=== PATIENT | female | born 1955 | race African-American/Black ===

== ENCOUNTER 2017-09-03 17:21 | Emergency (ER) | payer OTHER ==
[~2017-09-03] VITALS: Ht 167.6 cm; Wt 73.0 kg
[~2017-09-03 17:21] MED LIST: GLUCTAB PO; LANTUS2P SC; LISI-363 PO; LOVA40TA PO; METO50TA PO; NOVOLOGP2 SQ; VENL75 PO
[2017-09-03 18:03] VITALS: BP 141/65; PULSE 77; RESP 17; TEMP 98.5; O2SAT 99
[2017-09-03 19:47] LABS: AUTOMATED NEUTROPHIL # 5.1 TH/MM3 (1.8-7.7); BASOPHIL % 0.4 % (0.0-2.0); EOSINOPHIL # 0.3 TH/MM3 (0-0.4); EOSINOPHIL % 3.7 % (0.0-4.0); HEMATOCRIT 34.2 % (35.0-46.0); HEMOGLOBIN 11.9 GM/DL (11.6-15.3); LYMPH % 26.8 % (9.0-44.0); LYMPHOCYTE # 2.2 TH/MM3 (1.0-4.8); MEAN CORPUSCULAR HEMOGLOBIN 31.3 PG (27.0-34.0); MEAN CORPUSCULAR HGB CONC 34.8 % (32.0-36.0); MEAN PLATELET VOLUME 8.5 FL (7.0-11.0); MONO % 7.2 % (0.0-8.0); MONOCYTE # 0.6 TH/MM3 (0-0.9); NEUT % 61.9 % (16.0-70.0); PLATELET COUNT 325 TH/MM3 (150-450); RED CELL DISTRIBUTION WIDTH 12.9 % (11.6-17.2); WHITE BLOOD COUNT 8.2 TH/MM3 (4.0-11.0)
[2017-09-03 20:12] LABS: BICARBONATE 26.5 MEQ/L (21.0-32.0); CALCIUM 9.2 MG/DL (8.5-10.1); CREATININE 1.2 MG/DL (0.50-1.00)
[2017-09-03 21:10] VITALS: BP 171/75; PULSE 78; RESP 16; O2SAT 99
[2017-09-03] MEDS ORDERED: METO50TA PO (21:20)
[2017-09-03] MEDS ORDERED: LOVA40TA PO (21:20)
[2017-09-03] MEDS ORDERED: LISI-515 PO (21:20)
[2017-09-03] MEDS ORDERED: INSU1INJ14 SQ (21:20)
[2017-09-03] MEDS ORDERED: VENL75TA PO (21:20)
[2017-09-03] MEDS ORDERED: NOVOLOGP2 SQ (21:20)
[2017-09-03] MEDS ORDERED: METF1000 PO (21:20)
[2017-09-03] MEDS ORDERED: HYDR25TA5 PO (21:41)
[2017-09-03 21:42] VITALS: BP 157/78; PULSE 70; RESP 18; O2SAT 98
[2017-09-03] MEDS ORDERED: FUROSEMIDE 20 MG TAB PO ONE (21:45)
--- NOTE | 2017-09-03 21:49 | PD ---
HPI Chief Complaint: Edema Time Seen by Provider: 21:12 Travel History International Travel<30 days: No Contact w/Intl Traveler<30days: No Traveled to known affect area: No History of Present Illness HPI Patient is a 61-year-old female coming in after having been put on hydrochlorothiazide 25 mg 2 weeks ago. Patient says it is not helping at all her legs are still edematous bilateral. She has been elevating her legs she has been trying to stretch them she has not had any increase in urination and she feels the hydrochlorothiazide pill is not helping her symptoms which are bilateral leg edema progressively getting worse she has aching pain in them that is localized to her ankles bilateral. She also noticed now an increase in the swelling all the way up to her knees bilateral. She saw Dr. White PCP in [place] 2 weeks ago for that initial dosing of the hydrochlorthiazide. Tonight she comes in because it is getting worse and she does not feel the pill is working PFSH Past Medical History Diabetes: Yes (METFORMIN) Patient Takes Glucophage: No Hypertension: Yes Radiation Therapy: Yes Past Surgical History Hysterectomy: Yes Mastectomy: Yes (right) Social History Alcohol Use: No Tobacco Use: No Substance Use: No Allergies-Medications (Allergen,Severity, Reaction): Coded Allergies: No Known Allergies (Unverified Adverse Reaction, Unknown, 09/03/17) Reported Meds & Prescriptions Reported Meds & Active Scripts Active Lasix (Furosemide) 20 Mg Tab 20 Mg PO DAILY Reported Hydrochlorothiazide 25 Mg Tab 25 Mg PO DAILY Effexor (Venlafaxine HCl) 75 Mg Tab 75 Mg PO DAILY Metoprolol Tartrate 50 Mg Tab 50 Mg PO BID Metformin (Metformin HCl) 1,000 Mg Tab 1,000 Mg PO BIDPC Lovastatin 40 Mg Tab 40 Mg PO DAILY Lisinopril 20 Mg Tab 20 Mg PO DAILY Tresiba Flextouch Pen Inj (Insulin Degludec Inj) 300 unit/3 ML Pen 30 Units SQ HS Novolog Inj (Insulin Aspart) 1,000 Unit/10 Ml Vial 10 Units SQ TIDAC Review of Systems Except as stated in HPI: all other systems reviewed are Neg Physical Exam Narrative GENERAL: aox3 healthy appearing SKIN: Warm and dry. HEAD: Atraumatic. Normocephalic. EYES: Pupils equal and round. No scleral icterus. No injection or drainage. ENT: No nasal bleeding or discharge. Mucous membranes pink and moist. NECK: Trachea midline. No JVD. CARDIOVASCULAR: Regular rate and rhythm. RESPIRATORY: No accessory muscle use. Clear to auscultation. Breath sounds equal bilaterally. no rales auscultated GASTROINTESTINAL: Abdomen soft, non-tender, nondistended. Hepatic and splenic margins not palpable. MUSCULOSKELETAL: Extremities bilateral edema from thighs to knees to ankles feet bilateral edema 1 + slight pitting ... No obvious deformities. NEUROLOGICAL: Awake and alert. No obvious cranial nerve deficits. Motor grossly within normal limits. Five out of 5 muscle strength in the arms and legs. Normal speech. PSYCHIATRIC: Appropriate mood and affect; insight and judgment normal. Data Data Last Documented VS Orders Orders Complete Blood Count With Diff (09/03/17 18:06) Basic Metabolic Panel (Bmp) (09/03/17 18:06) B-Type Natriuretic Peptide (09/03/17 18:06) Furosemide (Lasix) (09/03/17 21:45) Troponin I (09/03/17 21:44) Urinalysis - C+S If Indicated (09/03/17 23:23) Ed Discharge Order (09/03/17 23:36) Electrocardiogram (09/03/17 21:47) Labs Laboratory Tests Test 09/03/17 18:55 09/03/17 21:30 09/03/17 23:26 White Blood Count 8.2 TH/MM3 Red Blood Count 3.80 MIL/MM3 Hemoglobin 11.9 GM/DL Hematocrit 34.2 % Mean Corpuscular Volume 90.0 FL Mean Corpuscular Hemoglobin 31.3 PG Mean Corpuscular Hemoglobin Concent 34.8 % Red Cell Distribution Width 12.9 % Platelet Count 325 TH/MM3 Mean Platelet Volume 8.5 FL Neutrophils (%) (Auto) 61.9 % Lymphocytes (%) (Auto) 26.8 % Monocytes (%) (Auto) 7.2 % Eosinophils (%) (Auto) 3.7 % Basophils (%) (Auto) 0.4 % Neutrophils # (Auto) 5.1 TH/MM3 Lymphocytes # (Auto) 2.2 TH/MM3 Monocytes # (Auto) 0.6 TH/MM3 Eosinophils # (Auto) 0.3 TH/MM3 Basophils # (Auto) 0.0 TH/MM3 CBC Comment DIFF FINAL Differential Comment Blood Urea Nitrogen 26 MG/DL Creatinine 1.20 MG/DL Random Glucose 98 MG/DL Calcium Level 9.2 MG/DL Sodium Level 134 MEQ/L Potassium Level 4.1 MEQ/L Chloride Level 99 MEQ/L Carbon Dioxide Level 26.5 MEQ/L Anion Gap 9 MEQ/L Estimat Glomerular Filtration Rate 55 ML/MIN B-Type Natriuretic Peptide 22 PG/ML Troponin I LESS THAN 0.02 NG/ML Urine Color LIGHT-YELLOW Urine Turbidity CLEAR Urine pH 6.0 Urine Specific Braman 1.006 Urine Protein NEG mg/dL Urine Glucose (UA) NEG mg/dL Urine Ketones NEG mg/dL Urine Occult Blood NEG Urine Nitrite NEG Urine Bilirubin NEG Urine Urobilinogen LESS THAN 2.0 MG/DL Urine Leukocyte Esterase NEG Urine RBC LESS THAN 1 /hpf Urine WBC 1 /hpf Urine Squamous Epithelial Cells 4 /hpf Microscopic Urinalysis Comment CULT NOT INDICATED MDM Medical Decision Making Medical Screen Exam Complete: Yes Emergency Medical Condition: Yes Differential Diagnosis pt has fluid in edema ankles and DDx . renal failure and CHF vascular valve incomptence Narrative Course I add 20 mg LASIX PO to her diuresis and she urinates 2 times in ER and i will discharge to follow up as oupt and see johnnie acosta close follow up Diagnosis Primary Impression: Edema Qualified Codes: R60.9 - Edema, unspecified Additional Impression: Peripheral edema Patient Instructions: General Instructions, Leg Edema (ED) Scripts Furosemide (Lasix) 20 Mg Tab 20 MG PO DAILY, #30 TAB 0 Refills Prov: Ankru Skelton MD 09/03/17 Disposition: 01 DISCHARGE HOME Condition: Good Ankur Skelton MD Sep 03, 2017 21:49
[2017-09-03 23:12] VITALS: BP_SYST 121; BP_SYST 126; BP_SYST 130; BP_DIAS 64; BP_DIAS 65; BP_DIAS 67
[2017-09-03] MEDS ORDERED: FURO1TAB62 PO (23:35)
[2017-09-03 23:43] LABS: BILIRUBIN, URINE NEG (NEG); BLOOD, URINE NEG (NEG); GLUCOSE,URINE NEG (NEG); KETONE, URINE NEG (NEG); NITRITE,URINE NEG (NEG); SQUAMOUS EPITHELIAL CELL URINE 4 /hpf (0-5); URINE COLOR LIGHT-YELLOW (YELLW/STRAW); URINE LEUKOCYTE ESTERASE NEG (NEG)
--- NOTE | 2017-09-05 10:05 | EKG ---
Date Performed: 09/03/2017 Time Performed: 21:47:42 PTAGE: 61 years EKG: Sinus rhythm NORMAL ECG NO PREVIOUS TRACING The T-wave inversions in lead V1 and V2 are nonspecific, but statisti rocio unusual in this age group. In the absence of a prior tracing, clinical correlation is advised t o assess any significance. DOCTOR: Kalyn Salazar Interpretating Date/Time 09/05/2017 10:03:47
== END 2017-09-03 23:57 | disposition home or self-care (01) ==
LOC: NEPC 17:21
DX: R60.0 Localized edema (principal); E11.9 Type 2 diabetes mellitus without complications; I10 Essential (primary) hypertension; Z79.4 Long term (current) use of insulin
CPT/HCPCS: 80048; 81001; 83880; 84484; 85025; 93005